=== PATIENT | male | born 1990 | race Caucasian/White ===

== ENCOUNTER 2016-11-19 22:14 | Emergency (ER) | payer OTHER ==
[2016-11-19 22:35] LABS: BASOPHIL COUNT 0.1 K/uL (0-0.1); EOSINOPHIL (%) 0.5 % (0-5); EOSINOPHIL COUNT 0.1 K/uL (0-0.3); HEMATOCRIT 40.5 % (38.0-50.0); IMMATURE GRANULOCYTE (%) 0.5 % (0.0-0.7); IMMATURE GRANULOCYTE COUNT 0.1 K/uL; INSTRUMENT ABS NEUTROPHIL CT 16.1 K/uL; LYMPHOCYTE COUNT 1.7 K/uL (1.0-2.8); MCH 29.2 PG (29.0-34.0); MCHC 34.3 G/DL (30.0-36.0); MCV 85.1 FL (86-99); MEAN PLAT.VOLUME 9.1 uM^3 (9.0-12.4); MONOCYTE (%) 4.7 % (3-12); MONOCYTE COUNT 0.9 K/uL (0-0.8); NEUTROPHIL (%) 85.3 % (45-76); NEUTROPHIL COUNT 16.1 K/uL (1.8-6.4); PLATELET COUNT 381 K/uL (156-360); RBC DIS.WIDTH-SD 39.9 % (39-53); RED BLOOD COUNT 4.76 M/uL (4.00-5.50); WHITE BLOOD COUNT 18.9 K/uL (4.1-10.2)
[2016-11-19 22:46] LABS: AMYLASE 38 IU/L (1-118); CHLORIDE 108 mEq/L (99-109); POTASSIUM 4.3 mEq/L (3.7-5.4); SODIUM 139 mEq/L (136-147)
[2016-11-19 22:48] LABS: GLUCOSE 104 mg/dL (70-99)
[2016-11-19 22:49] LABS: ANION GAP 11 MEQ/L (2-14)
[2016-11-19 22:51] LABS: SERUM ETHYL ALCOHOL < 10 mg/dL
[2016-11-19 22:52] LABS: UREA NITROGEN (BUN) 13 mg/dL (9-23)
[2016-11-19 22:53] LABS: GFR ESTIMATE (CALCULATED) > 59 mL/min/
[2016-11-19 22:55] LABS: LIPASE 15 U/L (1.0-51.0)
[2016-11-20] MEDS ORDERED: VENTOLIN HFA18 GM IH (00:01)
[2016-11-20] MEDS ORDERED: PERCOCET 5/31 TABLET PO (01:07)
== END 2016-11-20 02:44 | disposition home or self-care (01) ==
LOC: TRA 22:14
PROVIDERS: Emergency Medicine
DX: S41.111A Laceration without foreign body of right upper arm, initial encounter (principal); S82.252A Displaced comminuted fracture of shaft of left tibia, initial encounter for closed fracture; S93.05XA Dislocation of left ankle joint, initial encounter; V20.4XXA Motorcycle driver injured in collision with pedestrian or animal in traffic accident, initial encounter; Y92.410 Unspecified street and highway as the place of occurrence of the external cause; R51 Headache; R10.9 Unspecified abdominal pain; M54.9 Dorsalgia, unspecified; M25.521 Pain in right elbow; T14.8 Other injury of unspecified body region; J45.909 Unspecified asthma, uncomplicated
CPT/HCPCS: 70450; 71260; 72125; 72129; 72132; 73070; 73552; 73590; 73600; 73610; 74177; 80048; 81003; 82150; 83690; 85025; 86900; 86901; 99281; 99285; G0480; J0690; J2250; J2270; J2405; S0020